=== PATIENT | female | born 1980 | race Caucasian/White ===

== ENCOUNTER 2022-11-10 06:04 | Emergency (ER) | payer OTHER, SELFPAY ==
[2022-11-10 06:05] VITALS: BP 175/82; PULSE 71; RESP 18; TEMP 36.2; O2SAT 99; BMI 47.7
--- NOTE | 2022-11-10 06:46 | US_ITS ---
EXAM: US ABDOMEN LIMITED, RIGHT UPPER QUADRANT CLINICAL INDICATION: pain TECHNIQUE: Real-time ultrasound of the right upper quadrant with image documentation. COMPARISON: No relevant prior studies available. FINDINGS: LIVER: Liver echogenicity appears increased suggesting diffuse parenchymal liver disease, likely steatosis. No intrahepatic biliary ductal dilation. GALLBLADDER: 2 cm stone noted within the neck of the gallbladder. No gallbladder wall thickening is demonstrated. No pericholecystic fluid. Negative sonographic Germain''s sign. COMMON BILE DUCT: Unremarkable as visualized. The proximal common bile duct is within normal limits for the patient''s age. PANCREAS: Unremarkable as visualized. No focal abnormality is demonstrated in the pancreas. No pancreatic ductal dilatation. RIGHT KIDNEY: 2.2 cm right central parapelvic renal cyst. There is no hydronephrosis. No shadowing calculus. US/Gallbladder IMPRESSION: 1. Parenchymal liver disease. 2. Cholelithiasis. Electronically Signed: Dashawn Maria MD at 7:56 EDT ,
[2022-11-10] MEDS: HYDROmorphone 0.5 MG/0.5 ML SYRINGE IV ×2 (06:51→08:18)
[2022-11-10] MEDS: Ondansetron 4 MG/2 ML Vial IV (06:51)
[2022-11-10 06:58] LABS: Mucous, Urine 0 SEEN /hpf (<or=2+); Red Blood Cells-Urine 0 SEEN /hpf (0-5)
[2022-11-10 07:01] LABS: Absolute Lymphocyte Count 2.64 X10^3/uL (0.83-4.51); Absolute Neutrophil Count 7.7 X10^3/uL (2.0-7.7); Basophil# 0.07 X10^3/uL; Basophil% 0.6 % (0-1); Eosinophil# 0.22 X10^3/uL; Eosinophils% 1.9 % (0-5); Hematocrit 40.7 % (37-47); Hemoglobin 13.7 g/dL (12.0-15.0); Lymphocyte # 2.64 X10^3/ul (0.83-4.51); Mean Corp Hgb Conc 33.7 g/dL (32-36); Mean Platelet Vol. 9.7 fl (6.2-12.0); Monocyte# 0.78 X10^3/uL; Monocyte% 6.8 % (0-10); NRBC Flagged by Analyzer 0 % (0-5); Neutrophil # 7.72 X10^3/uL (2.7-7.7); Neutrophil % 67.4 % (47-70); Platelet Count 358 K/mm3 (150-450); RBC Distribution Width CV 13.2 % (11.6-14.6); RBC Distribution Width SD 41.3 fl (35.1-43.9); Red Blood Count 4.73 M/mm3 (4.2-5.4); White Blood Count 11.5 K/mm3 (4.4-11.0)
--- NOTE | 2022-11-10 07:08 | EDS_ITS ---
HPI History of Present Illness Chief Complaint: Abd Pain Narrative Narrative: Patient is a 42-year-old female with no significant past medical history. She reports that over the past few weeks she will get sudden onset pain of her left back/abdomen. She states will last for a few hours and then resolve. She states that there has been no trauma or excessive activity and she cannot associate the pain with eating. She states that initially the pain was short- lived and a few and far between but over the last 1 to 2 days the pain is been more intense with longer duration and more frequent bouts. She states that last night it began around 845 and has not stopped and secondary to this she comes in for evaluation. [facility] Medical History of child Home Medications lactobacillus combination no.8 3 billion cell capsule (Adult Probiotic) 3,000 mmu cells PO QDAY 07/19/17 [History Last Taken Unknown] multivitamin,[id number] (Complete Multivitamin tablet) 1 tab PO QDAY 07/19/17 [History Last Taken Unknown] Allergy/AdvReac Type Severity Reaction Status Date / Time No Known Allergies Allergy Unverified 07/19/17 14:25 Family History (Updated 07/19/17 @ 14:28 by Silvia Lee) Grandmother Breast cancer Cancer Social History (Updated 07/19/17 @ 14:34 by Doron RATLIFF, GAUDENCIO) Smoking Status: Never smoker alcohol intake: never ROS ROS ED Constitutional Constitutional ED: Denies chills or fever(s) ENT ENT ED: Denies sore throat Cardiovascular Cardiovascular: Denies chest pain Respiratory/Chest Respiratory/Chest: Denies cough or dyspnea Gastrointestinal Gastrointestinal: Reports abdominal pain and nausea; Denies diarrhea or vomiting Genitourinary Genitourinary ED: Denies dysuria or hematuria Musculoskeletal Musculoskeletal: Reports back pain Integumentary Denies rash Neurologic Neurologic: Denies headache(s) Hematologic/Lymphatic Hematologic/Lymphatic: Denies easy bleeding or easy bruising EXAM Physical Exam Const Vital Signs: 11/10/22 06:05 Temperature 97.1 F L Temperature Source Temporal Pulse Rate 71 Respiratory Rate 18 Blood Pressure 175/82 H Blood Pressure Mean 113 Pulse Ox 99 Oxygen Delivery Method Room Air Positive well nourished and well developed General Appearance ED: well developed HEENT Reports moist mucous membranes Eyes PERRL and EOMs intact bilaterally General Eye ED: Negative for scleral icterus Neck supple Resp normal respiratory effort and clear to auscultation bilaterally Cardio regular rate and regular rhythm Rate: other Other Details: Radial pulses are plus 2 out of 4 bilaterally are equal and symmetric GI non-distended GI Narrative: Abdomen is obese soft and nondistended with normal active bowel sounds. Patient has pain with palpation in the right upper quadrant with negative Germain sign. No voluntary guarding or rigidity. No pulsatile mass or fluid wave Auscultation: normoactive bowel sounds Palpation: soft Back/Spine Back/Spine Narrative: Faint left-sided CVA pain Extremity normal to inspection Neuro oriented x3 and CN's II-XII intact bilaterally Sensorium / Orientation: alert Psych mental status grossly normal Skin no rashes or lesions noted General Skin Exam: Negative for jaundice MDM MDM MDM Narrative Medical decision making narrative: Patient presented to the ER hypertensive otherwise with stable vitals. She reported intermittent pain along the left side that did not correlate with motion trauma or eating. She stated her pain was on the left but on palpation the only true panic elicit was in the right upper quadrant. Therefore with this recurrent pain I do have concern that this is an atypical presentation for biliary colic. Secondary to his basic labs and an ultrasound ordered. Differential diagnosis also includes intestinal inflammation such as colitis kidney stone or pyelonephritis. Therefore a urine sample was obtained and if it shows infection or blood consideration could be made for a CT scan. At this time the patient's labs and imaging are still pending and therefore she will be signed out to the day physician Dr. Oneil. I do feel that if work-up is negative patient should be safe for discharge but if positive for gallbladder dysfunction case may need to be discussed with general surgery prior to discharge. History & Record Review Discussion w/independent historian: Patient Lab Data Attestation: I reviewed the patient's lab results. Labs: Laboratory Results - last 24 hr 11/10/22 11/10/22 11/10/22 06:25 06:25 06:30 WBC 11.5 H RBC 4.73 Hgb 13.7 Hct 40.7 MCV 86.0 MCH 29.0 MCHC 33.7 RDW Std Deviation 41.3 RDW Coeff of Kelsea 13.2 Plt Count 358 MPV 9.7 Immature Gran % (Auto) 0.300 Neut % (Auto) 67.4 Lymph % (Auto) 23.0 Wake % (Auto) 6.8 Eos % (Auto) 1.9 Baso % (Auto) 0.6 Absolute Neuts (auto) 7.7 Absolute Lymphs (auto) 2.64 Nucleated RBC % 0 Sodium 137 Potassium 5.0 Chloride 108 H Carbon Dioxide 24.0 Anion Gap 5 BUN 15 Creatinine 0.92 Estim Creat Clear Calc 71.68 Est GFR (MDRD) Af Amer 86 Est GFR (MDRD) Non-Af 71 BUN/Creatinine Ratio 16.3 Glucose 122 H Calcium 8.8 Total Bilirubin 0.50 Direct Bilirubin < 0.05 AST 39 H ALT 30 Alkaline Phosphatase 89 Total Protein 7.6 Albumin 3.2 Globulin 4.4 H Lipase 16 Urine Color Yellow Urine Clarity Sl. Cloudy Urine pH 6.0 Ur Specific [place] 1.020 Urine Protein 15 H Urine Glucose (UA) Normal Urine Ketones Negative Urine Occult Blood 10 H Urine Nitrite Negative Urine Bilirubin Negative Urine Urobilinogen Normal Ur Leukocyte Esterase 500 H Urine RBC 0 SEEN Urine WBC 10-25 SEEN Ur Squamous Epith Cells 10-25 SEEN Urine Bacteria 2+ Urine Mucus 0 SEEN Urine Test Negative Discharge Plan Triage Chief Complaint: Abd Pain ED Provider: Reji Hobbs Dx/Rx/DC Orders Prescriptions: No Action lactobacillus combination no.8 [Adult Probiotic] 3 billion cell capsule 3,000 mmu cells PO QDAY multivitamin,jk-tjpw-bnehkvem tablet tablet 1 tab PO QDAY Primary Care Provider: Care Physician,No Primary Referrals: Care Physician,No Primary [Primary Care Provider] -
[2022-11-10 07:13] LABS: Color, Urine Yellow (Yellow); Glucose, Dipstick Normal (Normal); Ketone-Dipstick Negative (Negative); Leukocyte Esterase-Dipstick 500 /ul (Negative); Nitrite-Dipstick Negative (Negative); Occult Blood-Urine 10 /ul (Negative); Protein-Dipstick 15 mg/dl (Negative); Urine Bilirubin Dipstick Negative (Negative); Urine Clarity Sl. Cloudy (Clear); Urine Urobilinogen Normal (Normal)
[2022-11-10 07:17] LABS: Internal QC Validated? YES +Cl - CLEAR BKGD; Pregnancy, Urine Negative Negative
[2022-11-10 07:19] LABS: AST(SGOT) 39 U/L (15-37); Alanine Aminotransfer ALT/SGPT 30 U/L (13-56); Albumin, Serum 3.2 g/dL (3.2-5.0); Alkaline Phosphatase 89 U/L (45-117); Anion Gap 5 (5-15); BUN 15 mg/dL (7-18); BUN/Creat Ratio 16.3 RATIO (10-20); Bilirubin, Direct < 0.05 mg/dL (0.00-0.30); Calcium,Total 8.8 mg/dL (8.5-10.1); Chloride 108 mmol/L (98-107); Creatinine, Serum 0.92 mg/dL (0.55-1.02); EST Glomerular Filtration Rate 71 mL/min (>60); Est Glom Filt Rate - Afr Amer 86 mL/min (>60); Estimated Creatinine Clearance 71.68 ml/min; Globulin 4.4 g/dL (2.2-4.2); Glucose 122 mg/dL (74-106); Lipase 16 U/L (13-75); Protein, Total 7.6 g/dL (6.4-8.2); Sodium Level 137 mmol/L (136-145)
[2022-11-10 07:24] LABS: Bacteria 2+ /hpf (None Seen); Squamous Epithelial Cells - UA 10-25 SEEN /hpf (5-10); White Blood Cells 10-25 SEEN /hpf (0-5)
--- NOTE | 2022-11-10 08:21 | CT_ITS ---
EXAM: CT ABDOMEN AND PELVIS WITHOUT INTRAVENOUS CONTRAST CLINICAL INDICATION: abd pain TECHNIQUE: Helically acquired images were obtained of the abdomen and pelvis without intravenous contrast. This CT exam was performed using one or more of the following dose reduction techniques: automated exposure control, adjustment of the mA and/or kV according to patient size, and/or use of iterative reconstruction technique. COMPARISON: No relevant prior studies available. FINDINGS: LOWER THORAX: Normal. Lung bases are clear. No cardiomegaly. No pericardial effusion. ABDOMEN: LIVER: Normal. Homogeneous. GALLBLADDER AND BILE DUCTS: Partially and peripherally calcified 2.5 cm gallstone. PANCREAS: Normal. No focal cystic mass. SPLEEN: Normal. Normal size without focal cystic or solid mass. ADRENALS: Normal. No nodules. KIDNEYS AND URETERS: Normal. No hydronephrosis. STOMACH AND BOWEL: Normal. No bowel distention. No focal inflammatory change. PELVIS: APPENDIX: No evidence of acute appendicitis. BLADDER: Normal. REPRODUCTIVE: Unremarkable as visualized. No mass. ABDOMEN and PELVIS: INTRAPERITONEAL SPACE: Normal. No ascites or other fluid collection. No free air. BONES/JOINTS: No suspicious lytic or blastic abnormality. SOFT TISSUES: Normal. No discrete abdominal or pelvic wall hernia. VASCULATURE: Normal. Abdominal aorta is non-dilated. LYMPH NODES: Normal. No enlarged lymph nodes. CT/Abdomen/Pelvis without Cont IMPRESSION: Cholelithiasis. Electronically Signed: Dashawn Maria MD at 9:07 EDT Reading Location ID and State: [id number] / [place] Tel , Service support ,
[2022-11-10 09:35] VITALS: BP 138/68; PULSE 80; RESP 16; O2SAT 99
== END 2022-11-10 09:36 | disposition home or self-care (01) ==
PROVIDERS: Emergency Provider Emergency Medicine; Visit Provider Emergency Medicine
DX: K82.8 Other specified diseases of gallbladder (principal)
CPT/HCPCS: 74176; 76705; 80048; 80076; 81001; 81025; 83690; 85025; 96374; 96375; 96376; 99282; A4216; J2405

== ENCOUNTER 2022-11-18 05:49 | Day surgery (SDC) | payer OTHER, SELFPAY ==
[2022-11-18] VITALS (9 sets, daily range): BP systolic 104–132; BP diastolic 61–83; PULSE 61–90; RESP 14–18; TEMP 36.1–37.2; O2SAT 92–98; BMI 45.8
--- NOTE | 2022-11-18 | GALL_PTH ---
PATIENT: SERJIO GHOSH [place] [facility] [place][id number] AGE/SX: 42/F ROOM: RE11/18/[address]: Dr. Esa Nielsen MD : [id number] BED: DIS: 11/18/2022 SPEC #: [id number] RECD: 11/18/22 12:08 STATUS: JOHN RODRIGO #: [id number] JAMILA: 11/18/22 00:[address]: Esa Nielsen DEPT: SURGICAL PATHOLOGY RECD BY: Francis Diaz ENTERED: 11/18/22 12:09 SP TYPE: SARAN CAMPUZANO DR: No Primary Care Phys Tissues: Gallbladder, NOS Procedures: Surgery Specimen Level III Comments: @ Specimen number changed from [id number] to [id number] @ on 11/19/22 at 0751 by PARKEROD. HEADER OPERATION: Laparoscopic cholecystectomy with IOC PRE-OP DIAGNOSIS: Cholelithiasis, biliary colic TISSUE SUBMITTED: Gallbladder MICROSCOPIC DIAGNOSIS Gallbladder, cholecystectomy: Acute and chronic hemorrhagic cholecystitis, cholelithiasis and focal cholesterolosis. BRIEN:tigre 11/19/2022 MICROSCOPIC DESCRIPTION Slides are reviewed. GROSS DESCRIPTION Received is one container labeled with the patient's name and designated gallbladder. The specimen consists of a gallbladder measuring 12.5 cm in length and up to 5.0 cm in diameter. The external surface is pink-randle, smooth and glistening for the most part. Focally it is granular, hemorrhagic and contains cautery artifact. The gallbladder contains hemorrhagic mucoid bile and two mulberry, greenish-yellow stones measuring 1.5 and 2.0 cm in greatest dimension. The smaller stone is impacted close to the cystic duct. The mucosa is congested. The gallbladder wall measures up to 0.6 cm in thickness. Increased amount of subserosal fat is noted. Focal changes suspicious for cholesterolosis are also noted. Field Counsel sections from the gallbladder and the cystic duct are submitted in one cassette. / BRIEN:tigre 11/18/2022 TC:2 CPT: 82296
--- NOTE | 2022-11-18 06:00 | EKG12_ITS ---
Test Reason : PRE-OP Blood Pressure : / mmHG Vent. Rate : 078 BPM Atrial Rate : 078 BPM P-R Int : 160 ms QRS Dur : 088 ms QT Int : 388 ms P-R-T Axes : 035 -11 021 degrees QTc Int : 442 ms Normal sinus rhythm Normal ECG No previous ECGs available Confirmed by JOAN DUMONT, DANIELA ([id number]), technical writer and editor SADIE RODRIGUEZ ([id number]) on 11/20/2022 1:36:57 PM Referred By: Esa Nielsen Confirmed By:DANIELA FRANCO MD
[2022-11-18 06:13] LABS: Internal QC Validated? YES +Cl - CLEAR BKGD; Pregnancy, Urine Negative Negative
[2022-11-18] MEDS: Lactated Ringers 1,000 ML 15 ML IV ×2 (06:30→12:55)
--- NOTE | 2022-11-18 07:23 | PCM.OPRPT ---
Report of Operation Date of Procedure: 11/18/22 Pre-Operative Diagnosis: 1. Biliary colic 2. Cholelithiasis Post-Operative Diagnosis: Chronic cholecystitis Surgery/Procedure Performed:: Laparoscopic cholecystectomy with intraoperative cholangiogram Description of Surgical Findings:: ? Severely inflamed gallbladder with very thickened wall ? Accessory arteries given tributaries to the gallbladder running parallel to the gallbladder fossa on both sides of the gallbladder Surgeon: Esa Nielsen Anesthesiologist: Freeman Valenzuela Specimen's removed: Gallbladder Estimated Blood Loss (mL): 100 Description of Procedure: After proper identification in the preoperative holding area the patient was brought to the operating room where she was positioned supine on the operating room table. Preoperatively SCDs were placed and antibiotics were administered. General anesthesia was then induced. An orogastric tube was placed by anesthesia. Patient's abdomen was prepped and draped in usual sterile fashion. A formal timeout was conducted to confirm both patient and the procedure. Procedure was begun with a supraumbilical incision which was extended deeply down to the level of the fascia. The fascia was elevated and incised, as well as the peritoneum. A finger sweep was performed to ensure there were no underlying adhesions and a 12 mm balloon trocar was inserted. Pneumoperitoneum was established at 15 mmHg. 3 additional trocars were placed in the epigastrium and in the right upper quadrant (3 x 5 mm). Inspection of the peritoneum revealed no inadvertent injury to the viscera below. The gallbladder was visualized with significant distention and chronic inflammation. This distention/inflammation was so extensive it did not permit us to grasp the gallbladder without first aspirating some of the gallbladder contents with our suction purchasing intern aspiration needle. The gallbladder fundus was then grasped and elevated cephalad. Then, using careful dissection the peritoneum was opened and the structures of the hepatocystic triangle were delineated. The gallbladder wall was noted to be very thick and chronically edematous. Additionally, a moderately large gallstone remained impacted in the neck of the gallbladder despite manipulation attempts to displace it so that the gallbladder could be grasped in this location. A small arterial bleeder was identified laterally to the gallbladder adjacent to the neck with mild oozing. I attempted to use cautery to coagulate this vessel, but this only resulted in more extensive hemorrhaging. Therefore a Ray-Seven was placed in the abdomen and pressure was applied for 3 minutes which resulted in hemostasis. Once the critical view of safety was obtained, the cystic duct was singly clipped and partially divided. A cholangiocatheter was introduced to the abdomen via a 14-gauge angiocatheter and fed into the proximal segment of the cystic duct and clipped into place. Under fluoroscopy a cholangiogram was then obtained showing a short cystic duct flowing into a common bile duct with unobstructed antegrade flow of contrast into the duodenum. There was also retrograde flow through the common hepatic duct into the right and left hepatic ducts. Satisfied with this result, the clip on the cholangiocatheter was removed and the cholangiocatheter was withdrawn from the duct. Proximal duct was then triply clipped and completely transected. The same process was used for the cystic artery. The gallbladder was then removed from the gallbladder fossa with the use of electrocautery. Despite use of some limited, intentional blunt dissection of the soft tissue along the gallbladder fossa periphery, 2 small caliber arteries were encountered with bleeding on both the medial and lateral aspects approximately senior living up the gallbladder fossa. These vessels were secured with titanium clips and divided. After the gallbladder was fully removed from the liver, selective electrocautery was used to obtain hemostasis in the gallbladder fossa. Although the gallbladder fossa appeared hemostatic on inspection, given the bleeding experienced throughout the case a's watch of fibrillar hemostatic agent was placed in the proximal portion of the gallbladder fossa adjacent to the divided duct and cystic artery and the liver was allowed to return to its normal resting position. The gallbladder was placed in an Endo Catch bag and removed from the peritoneum. This extirpation required enlargement of the patient's supraumbilical incision at the level of the fascia due to the size of her gallstones. Morison's pouch was irrigated and the effluent was suctioned free of the peritoneum. Hemostasis was again confirmed. The supraumbilical port site was then closed under laparoscopic visualization using a Óscar-Hemant suture passer and #1 PDS with 2 times sbolft-ot-hrlwf sutures to reapproximate the fascia. Pneumoperitoneum was then evacuated. A total of 30 mL of anesthetic was injected at the port sites for postoperative pain control. The skin of each port site was then closed in subcuticular fashion using 4-0 Monocryl. Steri-Strips and bandages were applied as dressings. Patient tolerated the procedure well without any apparent complications. On emergence from their anesthetic the patient was taken to PACU for ongoing recovery. Complications None Admit VTE Documentation VTE Mechan Device Prophylaxis: SCD's Procedures Digestive 40xxx-49xxx: 25001 Laparo cholecystectomy/graph
--- NOTE | 2022-11-18 07:23 | PCM.HP.BLA ---
History and Physical Date of Admission: 11/18/22 Date of Service:? 11/11/22 MR#: [id number] Acct: [id number] Name:SERJIO AGUIRRE Rep #: [id number] : 1980 ? ? Provider: Dr. Esa Nielsen MD Age/Sex:? 42/F ? ? Location: [facility] [place].[facility] Status: Signed Intake Vital Signs ? 11/10/2305:11/11/2309:32 Height 5 ft 5 in ? Weight: 287 lb 0.67 oz 280 lb BMI 47.7 ? BP 175/82 H 124/83 H Blood Pressure Location ? Rt brachial Position ? Sitting Respiration 18 17 Pulse 71 84 Pulse Source ? Monitor Temp 97.1 F L 97.5 F L Temp Source Temporal Temporal Pulse Oximetry (%) 99 96 Oxygen Delivery Method ? room air Intake Visit Reasons:?ED GALLBLADDER Chief Complaint: ED gallbladder Is patient in pain?: Yes Allergies No Known Allergies Allergy (Unverified 11/11/22 10:34) Medications lactobacillus combination no.8 3 billion cell capsule (Adult Probiotic) 3,000 mmu cells PO QDAY 07/19/17 [History Confirmed 11/11/22] multivitamin,mf-uwjf-fzuddthi (Complete Multivitamin tablet) 1 tab PO QDAY 07/19/17 [History Confirmed 11/11/22] hydrocodone-acetaminophen 5-325mg 5mg-325mg 1 tab PO Q6H PRN PRN Pain 3 days #10 TABLETS 11/10/22 [Rx Confirmed 11/11/22] ondansetron 4 mg disintegrating tablet 4 mg PO Q8H PRN PRN Nausea #10 tabs 11/10/22 [Rx Confirmed 11/11/22] sulfamethoxazole 800 mg-trimethoprim 160 mg tablet (Bactrim DS) 1 tab PO BID 3 days #6 tabs 11/11/22 [Rx Confirmed 11/11/22] PFSH Medical History? of child Family History?(Updated 11/11/22 @ 10:29 by Bel Orozco) Grandmother Breast cancer CancerSister Diabetes Social History?(Updated 07/19/17 @ 14:34 by Doron RATLIFF, PA) Smoking Status:? Never smoker alcohol intake:? never HPI HPI HPI: Patient is a 42-year-old female who presents for complaints of biliary colic and cholelithiasis following an ER visit yesterday, 11/10/2022.? Patient states for the last 1 months she is experienced upper left-sided abdominal pain that radiates into her back, however, she has noticed the distribution of this pain changed somewhat to the midportion of her abdomen.? She notes most of the time the pain is limited to just a few hours, however, she experienced pain for greater than 24 hours during her last episode.? She confirms that this pain does have a postprandial onset.? Despite making this observation, she is unclear as to which foods precipitate this pain. She denies any prior experience of this pain outside of this presentation and specifically denies any difficulties through 4 pregnancies. Asked generally about other body systems, patient remarks that she has experienced some recent difficulties with constipation and previously had experienced some diarrhea.? Concerning her urinary habits, she denies any experience of burning or pain with urination, but did remark to some darker urine.? She denies any history of kidney stones or recurrent urinary tract infections. Patient does not have any medical diagnoses and does not take any medications.? She reports that she does bedolla weight issues, but has remained relatively stable in weight for the last several years.? She has no prior surgical history. Previous work-up has included: Gallbladder ultrasound and CT imaging?both which show cholelithiasis without other evidence of cholecystitis or choledocholithiasis.? Notably, 2, patient's CMP was within normal limits aside from very mildly elevated AST (2 points over the upper limits of normal range). ROS General General: Yes fatigue; No weight change, appetite, colon cancer, breast cancer or weakness HEENT HEENT: No difficulty swallowing, eye injury, eye surgery, swollen glands or hoarseness Endo Endocrine: No thyroid disease, diabetes mellitus, thyroid cancer, Hair loss, heat intolerance or cold intolerance Skin Skin: No rash or changing moles Musc Musculoskeletal: No back problems, arthritis, rheumatoid arthritis, gout or joint pain Cardio Cardiovascular: No murmur, pacemaker, heart disease, atrial fibrillation, high blood pressure, heart attack, heart stent, palpitations, shortness of breat with exertion or chest pain Psych Psychiatric: No depression, anxiety or hearing voices Resp Respiratory: No shortness of breath, No sleep apnea, No cough, No COPD, No asthma, No emphysema and No wheezing Gastro Gastrointestinal: Yes abdominal pain, Yes nausea or vomiting, Yes diarrhea, No constipation, No blood in stool, No acid reflux, No hemorrhoids, No ulcers, Yes gallbladder problem and No black,tarry stools Von Hematologic: No blood thinners, No blood disorders, No bleeding, No anemia and No blood clots Neuro Neurologic: No system reviewed and no additional complaints, except as documented, No as per HPI, No abnormal gait, No abnormal hearing, No abnormal movements, No abnormal speech, No behavioral changes, No burning sensations, No confusion, No convulsions, No disequilibrium, No dizziness, No localized weakness, No frequent falls, No headache(s), No lack of coordination, No loss of vision, No memory loss, No numbness, No other visual disturbances, No radicular pain, No restless legs, No sensory deficit, No syncope, No tingling, No tremor(s), No weakness and No other Exam Const General: cooperative and comfortable Nutritional Appearance: obese morbidly obese Orientation: alert, awake and oriented x3 Resp Effort & Inspection: normal respiratory effort GI Other: Nondistended, no scars, soft, minimally tender to palpation in the right upper quadrant with negative Germain sign.? Remainder of abdomen is nontender to palpation.? No hernias. Assessment and Plan Assessment and Plan (1) Biliary colic: ?Status:?Acute ?Comment: This is a 42-year-old female who presents with somewhat atypical presentation of biliary colic.? However, patient does have postprandial pain that seems localized to the right upper quadrant on exam.? Further, she has both now CT and ultrasound imaging which demonstrated cholelithiasis and finding of a moderately large, calcified gallstone in the neck of the gallbladder.? Based on her descriptions of late night, postprandial discomfort, I do suspect that she is dealing with some biliary colic and potentially some chronic cholecystitis.? With this admission, I do question whether the entirety of her symptomology can be attributed to this diagnosis as she is remarked of some left-sided discomfort and her ER work-up was notable for occult blood in her UA as well as leukocyte esterase and some bacteria.? Therefore, with this suspicion and the intent to pursue an operation for her gallbladder, I would like to treat her empirically for urinary tract infection. I held a detailed conversation, including hand drawings, with patient and her regarding the physiology and pathophysiology of her condition.? I shared with them my recommendation to proceed for a laparoscopic cholecystectomy with intraoperative cholangiogram and the reasons for this recommendation.? They accept this recommendation and would like to proceed for an outpatient procedure sometime next week. ?Plan: ? Laparoscopic cholecystectomy with intraoperative cholangiogram tentatively planned for 11/18/2022 (procedure to be scheduled as an outpatient procedure) (2) Cholelithiasis: ?Status:?Acute ?Comment: See above.? Patient with 2 cm gallstone in the neck of the gallbladder and probable biliary colic symptoms.? Cholecystectomy recommended. (3) Urinary tract infection: ?Status:?Acute ?Comment: Patient with left-sided upper abdominal and flank pain, pyuria, occult hematuria, and bacteria in her urine.? Since some of her symptoms potentially are traced back to this dirty urine and we are planning for an outpatient gallbladder procedure, I have recommended treatment of her urine to mitigate her risk for cross-contamination.? Bactrim 160-800 mg twice daily x3 days was ordered to the pharmacy. ?Plan: ? Bactrim x3 days (4) Hepatomegaly: ?Status:?Acute ?Comment: Patient with clear evidence of hepatomegaly with right lobe extending well below her costal margin.? Given her habitus, I am concerned for possible nonalcoholic fatty liver disease.? We will plan to try to confirm this intraoperatively.? I have informed patient of this impression and?along with her cholelithiasis?recommend that she get plugged into a primary care physician for evaluation of her cholesterol/lipids.? She sees merit in this recommendation and asked for a referral to a primary care provider. ?Plan: ? Referral to internal medicine to establish care ? ? ? Orders: Referrals Internal Medicine ? K80.50 - Calculus of bile duct without cholangitis or cholecystitis without obstruction, N39.0 - Urinary tract infection, site not specified, R16.0 - Hepatomegaly, not elsewhere classified I have examined the patient the following changes are noted: Patient reports that she is having additional attacks of abdominal pain earlier this week. She also confirms that she completed her prescribed antibiotics for empiric treatment of probable UTI. She has no further questions related procedure. We will plan to proceed to the operating room for laparoscopic cholecystectomy with cholangiogram as discussed above.
--- NOTE | 2022-11-18 07:30 | RAD_ITS ---
HISTORY: LAP TAYLOR WITH IOC COMPARISON: CT abdomen and pelvis November 10, 2022 TECHNIQUE: Fluoroscopic support for intraoperative cholangiogram. No radiologist present. 2 fluoroscopic runs submitted FINDINGS: Images demonstrate filling of the remaining cystic duct, common bile duct, with reflux of contrast into hepatic ducts, without focal filling defect to suggest retained stone.. Total fluoroscopy time: 30.9 seconds Cumulative dose: 27.79 mGy RAD/Cholangiogram/ O R,Initial IMPRESSION: Fluoroscopic assistance for intraoperative cholangiogram. Please see operative report for additional information. Electronically Signed: Lazarus Morales MD at 5:36 EDT ,
[2022-11-18] MEDS: Bupivacaine Mpf 0.5% 30 ML VIAL (10:00)
--- NOTE | 2022-11-18 10:05 | DCINST_ITS ---
Discharge Instructions Diet Discharge Diet: No restrictions Activity Discharge Activity: May Not Drive (No driving while using narcotic pain medication) and May Shower (Postoperative day 1) May shower in (days): 1 Ice area for (Minutes): 20 Lifting Restrictions: No lifting greater than 15 pounds for 2 weeks after surgery Dressing / Incision Call your doctor if your incision/area has: Continuous Slow Oozing, Increased Pain/ Swelling, Increased Redness, Foul Smelling Discharge and Swelling at the incision site Call your doctor if you observe: Fever of 101 or Higher Remove Dressing in: 2 days (Please leave Steri-Strips intact until they fall off spontaneously or are taken off at your follow-up visit) Cleanse incision/area with: Soap & Water Follow Up Care Please Follow Up With: Esa Nielsen MD When: 7-10days postop Test Results: Test results from this visit will be discussed in further detail at your follow- up appointment, if applicable. Discharge Plan Admission Primary Reason for Your Visit: Gallbladder removal Attending Provider: Esa Nielsen Primary Care Provider: Care PhysicianAngélica Primary Instructions Patient Instructions: After Gallbladder Surgery Discharge Orders/Prescriptions Prescriptions: New oxycodone 5 mg tablet 5 mg PO Q6H PRN (Reason: pain) 5 Days Qty: 14 0RF Continued lactobacillus combination no.8 [Adult Probiotic] 3 billion cell capsule 3,000 mmu cells PO QDAY multivitamin,uo-iwro-sohthyke tablet tablet 1 tab PO QDAY hydrocodone-acetaminophen 5-325 mg tablet 1 tab PO Q6H PRN PRN (Reason: Pain) 3 Days Qty: 10 0RF ondansetron 4 mg tablet,disintegrating 4 mg PO Q8H PRN PRN (Reason: Nausea) Qty: 10 0RF famotidine [Pepcid AC] 20 mg Tablet 20 mg PO PRN PRN (Reason: Indigestion) naproxen sodium [Aleve] 220 mg Capsule 220 mg PO Q12H PRN (Reason: Pain) Referrals / Follow Up: Care PhysicianAngélica Primary [Primary Care Provider] - Disposition Disposition (needs filled in before D/C Order can be placed): Home, Self Care
== END 2022-11-18 14:56 | disposition home or self-care (01) ==
LOC: SDC 05:49 → AC 05:49
PROVIDERS: Anesthesiology; Referring Provider Surgery; Visit Provider Surgery
PROC: (CPT 47610; principal; 2022-11-18 07:10)
DX: K80.12 Calculus of gallbladder with acute and chronic cholecystitis without obstruction (principal); R16.0 Hepatomegaly, not elsewhere classified; J45.909 Unspecified asthma, uncomplicated; Z79.899 Other long term (current) drug therapy
CPT/HCPCS: 47563; 74300; 76000; 81025; 88304; 93005; J7120; J2405

== ENCOUNTER → 2024-01-06 | Outpatient (CLI) | payer OTHER, SELFPAY ==
[2024-01-06 12:21] LABS: Absolute Lymphocyte Count 2.25 X10^3/uL (0.83-4.51); Absolute Neutrophil Count 7.1 X10^3/uL (2.0-7.7); Basophil# 0.05 X10^3/uL; Basophil% 0.5 % (0-1); Eosinophil# 0.27 X10^3/uL; Eosinophils% 2.6 % (0-5); Hematocrit 43.9 % (37-47); Hemoglobin 14.3 g/dL (12.0-15.0); Lymphocyte # 2.25 X10^3/ul (0.83-4.51); Lymphocyte % 21.8 % (19-41); Mean Corp Hgb Conc 32.6 g/dL (32-36); Mean Corpuscular Hgb 28.2 pg (27.0-32.0); Mean Corpuscular Volume 86.6 fL (81-99); Mean Platelet Vol. 9.9 fl (6.2-12.0); Monocyte# 0.59 X10^3/uL; Monocyte% 5.7 % (0-10); NRBC Flagged by Analyzer 0 % (0-5); Neutrophil # 7.13 X10^3/uL (2.7-7.7); Neutrophil % 69.1 % (47-70); Platelet Count 371 K/mm3 (150-450); RBC Distribution Width CV 13.5 % (11.6-14.6); Red Blood Count 5.07 M/mm3 (4.2-5.4); White Blood Count 10.3 K/mm3 (4.4-11.0)
[2024-01-06 13:01] LABS: ALB/GLOB Ratio 0.7 RATIO (0.9-2.4); AST(SGOT) 17 U/L (15-37); Alanine Aminotransfer ALT/SGPT 23 U/L (13-56); Albumin, Serum 3.1 g/dL (3.2-5.0); Alkaline Phosphatase 106 U/L (45-117); Anion Gap 8 (5-15); BUN 17 mg/dL (7-18); BUN/Creat Ratio 18.5 RATIO (10-20); Chloride 106 mmol/L (98-107); Cholesterol 140 mg/dL (200); Creatinine, Serum 0.92 mg/dL (0.55-1.02); EST Glomerular Filtration Rate 71 mL/min (>60); Est Glom Filt Rate - Afr Amer 86 mL/min (>60); Globulin 4.3 g/dL (2.2-4.2); Glucose 122 mg/dL (74-106); High Density Lipoprotein 33 mg/dL; Potassium 4.5 mmol/L (3.5-5.1); Protein, Total 7.4 g/dL (6.4-8.2); Sodium Level 137 mmol/L (136-145); Triglycerides 118 mg/dL; Very Low Density Lipoprotein 24 mg/dL (5-40)
[2024-01-06 14:01] LABS: Hemoglobin A1c 5.8 % (3.8-5.6)
== END | disposition home or self-care (01) ==
LOC: BIMLAB 08:09
PROVIDERS: PCP Internal Medicine; Referring Provider Internal Medicine; Visit Provider Internal Medicine
DX: Z13.6 Encounter for screening for cardiovascular disorders (principal); R73.03 Prediabetes; K21.9 Gastro-esophageal reflux disease without esophagitis
CPT/HCPCS: 36415; 80053; 80061; 83036; 85025

== ENCOUNTER → 2024-01-19 | Outpatient (CLI) | payer OTHER, SELFPAY ==
--- NOTE | 2024-01-19 14:59 | CT_ITS ---
STUDY: CT ABDOMEN AND PELVIS WITH CONTRAST REASON FOR EXAM: Female, 43 years old. incisional hernia RADIATION DOSAGE (If Supplied By Facility): CTDIvol = ( 16.84 ) mGy, DLP = ( 1192.67 ) mGycm TECHNIQUE: Oral and amp; IV Readi-CAT and amp; 100mL Isovue-300 was administered. Transaxial images were obtained from the dome of the diaphragm to the symphysis pubis in the portal venous phase. Multiplanar coronal and sagittal images were reformatted. Individualized Dose Optimization Techniques Were Used For This CT. COMPARISON: Prior study dated: 11/10/2022 FINDINGS: LOWER CHEST: Lung bases are clear. No cardiomegaly or pericardial effusion. LIVER: The liver is normal in size, shape, and attenuation. No focal mass. GALLBLADDER AND BILIARY TREE: Cholecystectomy. No intra- or extrahepatic biliary ductal dilation. PANCREAS: No focal cystic or solid mass. SPLEEN: Normal size without focal cystic or solid mass. ADRENAL GLANDS: No nodules. KIDNEYS AND URETERS: Normal renal size and position. No hydronephrosis or nephrolithiasis. PERITONEUM: No ascites or free air. No other fluid collection. BOWEL: The stomach is unremarkable. Normal caliber small bowel. There is no obstruction. No colonic wall thickening or inflammation. Appendix not seen. LYMPH NODES: No enlarged mesenteric or retroperitoneal lymph nodes. VESSELS: Aorta is non-dilated. URINARY BLADDER: Unremarkable. REPRODUCTIVE ORGANS: No pelvic masses. ABDOMINAL WALL: Fat-containing right periumbilical hernia is new from previous. Hernia neck measures 3.6 cm transverse by 3 cm CC. Hernia sac measures 5.6 x 4.7 x 5 cm. BONES: No lytic or blastic abnormality. CT/Abdomen/Pelvis WITH Contrast IMPRESSION: Fat-containing periumbilical abdominal wall hernia. No inflammatory changes. This is new from the prior CT. Electronically Signed: Darci Keenan MD at 16:14 EDT ,
== END | disposition home or self-care (01) ==
LOC: CT 14:58
PROVIDERS: PCP Internal Medicine; Referring Provider Internal Medicine; Visit Provider Internal Medicine
DX: K43.2 Incisional hernia without obstruction or gangrene (principal)
CPT/HCPCS: 74177; Q9967

== ENCOUNTER → 2024-11-21 | Outpatient (CLI) | payer OTHER, SELFPAY | END | disposition home or self-care (01) | LOC: LABSPEC 16:48 | PROVIDERS: PCP Internal Medicine; Referring Provider Surgery; Visit Provider Surgery | DX: K43.2 Incisional hernia without obstruction or gangrene (principal) | CPT/HCPCS: 87081 ==

== ENCOUNTER → 2025-05-02 | Outpatient (CLI) | payer OTHER, SELFPAY | END | disposition home or self-care (01) | LOC: LABSPEC 10:56 | PROVIDERS: PCP Internal Medicine; Referring Provider Physician Assistant; Visit Provider Physician Assistant | DX: Z01.818 Encounter for other preprocedural examination (principal) | CPT/HCPCS: 87081 ==

== ENCOUNTER 2025-06-01 09:27 | Day surgery (SDC) | payer OTHER, SELFPAY ==
[2025-06-01] VITALS (9 sets, daily range): BP systolic 129–143; BP diastolic 83–91; PULSE 65–84; RESP 12–20; TEMP 36.1–36.8; O2SAT 92–99; BMI 45.1
--- NOTE | 2025-06-01 09:32 | PRE.ANES_ITS ---
ASA Classification* ASA Classification ASA Classification: 3 Assessment & Plan Anesthesia* Anesthesia Assessment Anesthesia Assessment: Discussed sedation and/or anesthesia options, risks, benefits, and alternatives with patient/parents/legal guardian/POA. Questions invited. The patient/parents/legal guardian/POA seems to understand and agrees to proceed with anesthesia plan. Reviewed the physical assessment, medical history, allergy history and patient home medications list prior to surgery/procedure/anesthetic and documented any changes. Performed airway and anesthesia risk assessments. Anesthesia Type Anesthesia Type: General Anesthesia Focused Assessment* Airway Assessment Mouth opens: >3 cm Mallampati Score: II Labs Anesthesia Preop lab: CBC WBC, (4.4-11.0) 10.3 K/mm3 01/06/24, 08:09 RBC, (4.2-5.4) 5.07 M/mm3 01/06/24, 08:09 Hgb, (12.0-15.0) 14.3 g/dL 01/06/24, 08:09 Hct, (37-47) 43.9 % 01/06/24, 08:09 Plt Count, (150-450) 371 K/mm3 01/06/24, 08:09 CHEMISTRY Potassium, (3.5-5.1) 4.5 mmol/L 01/06/24, 08:09 Sodium, (136-145) 137 mmol/L 01/06/24, 08:09 BUN, (7-18) 17 mg/dL 01/06/24, 08:09 Creatinine, (0.55-1.02) 0.92 mg/dL 01/06/24, 08:09 Glucose, (74-106) 122 mg/dL H 01/06/24, 08:09 TSH, (0.358-3.74) 1.90 uIU/mL 05/19/17, 10:50 COAG Urine Test Negative Negative 11/18/22, 06:05 Pre-Assessment Diagnosis/Proposed Procedure Planned Operative Procedure(s): Lap Robotic Ventral Hernia w/mesh Anesthesia History 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 When Was Last Pacemaker Check QUESTION #4 FULL TEXT: You/Your Family Experience fever (hyperthermia) with Anesthesia Last Oral Intake Last Oral intake: Last Oral Intake NPO since Meds taken in AM with sips of water? Meds patient instructed to take am of surgery PONV PONV - artificial flowers dyer: PONV - artificial flowers dyer Female Yes 05/30/25 09:50 HX of Motion Sickness Yes 05/30/25 09:50 HX of N/V After Surgery No 05/30/25 09:50 Non-Smoker Yes 05/30/25 09:50 Duration of Surgery greater No 05/30/25 09:50 than 60 minutes Number of Risk Factors 3 05/30/25 09:50 PONV Score Moderate Risk 05/30/25 09:50 Height & Weight Height & Weight: Anesthesia: Height & Weight Height 5 ft 5 in 05/31/25 09:43 Weight: 121.109 kg 05/31/25 09:43 Respiratory Assessment Respiratory Assessment - artificial flowers dyer: Respiratory Tract Infection Hx - artificial flowers dyer Hx Respiratory Tract Infection No 05/30/25 09:50 STOP Sleep Apnea STOP Sleep Apnea - artificial flowers dyer: STOP Sleep Apnea - artificial flowers dyer Hx Hypertension No 05/30/25 09:50 Hx Sleep Apnea No 05/30/25 09:50 CPAP BIPAP Do you snore loudly (louder No 05/30/25 09:50 than talking or can be heard Do you often feel tired/ No 05/30/25 09:50 fatigued/ sleepy during daytime? Has anyone observed you stop No 05/30/25 09:50 breathing during sleep? STOP Results Negative 05/30/25 09:50 QUESTION #5 FULL TEXT : Do you snore loudly (louder than talking or can be heard through closed doors)? Tobacco Use History Tobacco Use History - artificial flowers dyer: Tobacco Use History - artificial flowers dyer Tobacco Use Smoking Status Never smoker 05/30/25 09:50 Hx Tobacco Use No 05/30/25 09:50 Years Smoking Packs Smoked per Day Smoking Cessation Date was within the last 15 years Hx Smoking Cessation Date Hx Smoking Cessation Counseling Hematologic Medial History Hematologic Hx - artificial flowers dyer: Hematologic Medical Hx - toll mechanic Hx of Blood Transfusion No 05/30/25 09:50 Hx of Transfusion in last 3 No 05/30/25 09:50 Months Date of Last Transfusion (if within last 3 months) Ever experience any problems No 05/30/25 09:50 with transfusion(s)? Specify any problems Hx of Preganancy in last 3 No 05/30/25 09:50 Months Nurse Filling Out Transfusion VCHRISTIN 05/30/25 09:50 & Questions: Date: 05/30/25 05/30/25 09:50 Time: 09:51 05/30/25 09:50 Patient unable to answer at this time (ie. confused, unrespo /Reproduction History /Reproductive History - artificial flowers dyer: /Reproductive Hx- artificial flowers dyer Hx Now No 05/30/25 09:50 Gestational Age (in weeks): EDC: Hx Hx Para Hx Section SAB No 05/30/25 09:50 Does the father of the baby or his family experience fever w Father of the baby Malignant Hypertension history comment Active Medications Active Medications: Current Medications Generic Name Dose Route Start Last Admin Trade Name Freq PRN Reason Stop Dose Admin Cefazolin Sodium 3 gm/ Sodium 115 mls @ 200 mls/hr 06/01/25 11:00 Chloride IV 06/01/25 11:34 INTRAOP ONE PFSH Medical History Hair loss Pre-op testing Anxiety Fatty liver Back pain Migraine headache Heartburn Asthma Shortness of breath on exertion Non-smoker Leg cramps Biliary colic of child Home Medications ?Medication ?Instructions ?Recorded ?Last Taken ?Type famotidine 20 mg tablet (Pepcid AC) 20 mg PO PRN PRN I ndigestion 11/13/22 Unknown History ibuprofen 200 mg tablet (Advil) 200 mg PO Q8H PRN pain 05/30/25 Unknown History Allergy/AdvReac Type Severity Reaction Status Date / Time No Known Allergies Allergy Verified 05/30/25 09:46 Family History Grandmother Breast cancer Cancer Sister Diabetes Surgical History History of laparoscopic cholecystectomy S/P cholecystectomy History of esophagogastroduodenoscopy (EGD) Social History household members: spouse and children number of children: 4 current occupational status: employed current occupation: [email or web address] Smoking Status: Never smoker Electronic Cigarette Use: not used alcohol intake: current alcohol intake frequency: holidays/special occasions only Alcohol type: wine substance use type: does not use what type of physical activity do you participate in: walking frequency: 3-4 times per week seatbelt use: always do you feel safe at home: Yes Review of Systems (Anesthesia) ROS Narrative System reviewed and no additional complaints, except as documented.
[2025-06-01 09:59] LABS: Internal QC Validated? YES +Cl - CLEAR BKGD; Pregnancy, Urine Negative Negative
[2025-06-01] MEDS: Lactated Ringers 1,000 ML 15 ML IV (10:17)
--- NOTE | 2025-06-01 11:08 | HP.PCM_ITS ---
History and Physical Date of Admission: 06/01/25 Date of Service: 05/02/25 MR#: [id number] Acct: [id number] Name: SERJIO GHOSH Rep #: [id number] : 1980 Provider: JONO Rodriguez Age/Sex: 44/F Location: [facility] Status: Signed Intake Vital Signs 02/02/2514:11 05/02/2510:36 Height 5 ft 5 in 5 ft 5 in Weight: 267 lb 272 lb BMI 44.4 45.2 BP 126/64 H 115/78 Blood Pressure Location Lt brachial Rt brachial Position Sitting Sitting Respiration 16 16 Pulse 74 Pulse Source Monitor Temp 97.3 F L Temp Source Temporal Pulse Oximetry (%) 97 Oxygen Delivery Method room air Intake Visit Reasons: update H&P for hernia repair with MB Chief Complaint: update H&P Call Center Analyst Required: No Is patient in pain?: No Allergies No Known Allergies Allergy (Unverified 05/02/25 10:37) Medications ?Medication ?Instructions ?Recorded ?Confirmed ?Type famotidine 20 mg tablet (Pepcid AC) 20 mg PO PRN PRN Indigestion 11/13/22 05/02/25 History collagen PO 11/21/24 05/02/25 History multivitamin (Daily Multi-Vitamin 1 tab PO QAM 11/21/24 05/02/25 History tablet) minoxidil 2.5 mg tablet 1.25 mg PO QDAY 02/02/25 05/02/25 Histor y spironolactone 100 mg tablet 100 mg PO QDAY 02/02/25 05/02/25 History Have you fallen in the past year?: No PFSH Medical History Hair loss Pre-op testing Anxiety Fatty liver Back pain Migraine headache Heartburn Asthma Shortness of breath on exertion Non-smoker Leg cramps Biliary colic of child Surgical History S/P cholecystectomy History of esophagogastroduodenoscopy (EGD) Family History Grandmother Breast cancer Cancer Sister Diabetes Social History household members: spouse and children number of children: 4 current occupational status: employed 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 Nielsen. At patient's last visit, she was noted to have lost 30 pounds with the help of injectable weight loss medication. She notes going off of the medication as she did not like the side effects. She notes gaining approximately 20 pounds back. She has been back dieting. She notes last having pain at the hernia site with her jeans. She states that is when she decided to call our office to schedule an appointment for surgery. She denies any bowel habit changes. She denies any cardiac or pulmonary history. She notes nausea with anesthesia when she had her gallbladder removed. Patient's previous history per Dr. Nielsen: Patient is a 44-year-old female who presents for evaluation of a ventral hernia. She was last seen 02/09/2024. She states that she has been working at weight loss but is not quite as low as what we had discussed. She reports excess has been found first through use of tirzepatide and now while dieting and exercising on her own (she also notes a limited period of exercising with a personal property assessor that is now complete) she states that overall her hernia can be described as status quo but last week when she was driving she felt some pain in the area. She otherwise denies noting any growth and states she has been consciously trying not to lift anything heavy. She also denies any other health changes, generally. Below is recapitulated from patient's prior visit for ease of review: Patient is a 43-year-old female who presents for evaluation of a ventral hernia. This finding was first noticed by 4 to 5 months after completion of our last procedure together (a cholecystectomy in October 2022). He shares that it started b y noticing a bulge but has progressed to include a pain experience which she confesses is not constant. She notes that there is discomfort when she is lifting or occasionally simply when standing. She denies any concern for growth. She does report that she has limited her physical activity because of this issue. Patient reports on her history of prediabetes that she has been told this is stable. She shares that she has been trying to lose weight since August and has achieved approximately 8 to 10 pound weight loss through walking and watching what she eats. Patient has no personal history of smoking. Patient has no personal history of recurrent cutaneous infections including staph. Pertinent surgical history includes: Laparoscopic cholecystectomy Update 11/21/2024: Patient is now a 44-year-old female who follows up with me approximately 9 months after our initial consultation related to her ventral hernia. She has overall use this time productively and realized an approximately 30 pound weight loss. This has translated to a decrease of her BMI by 5 points. While this still remains above an ideal BMI threshold of 40 patient pledges to continue her work towards weight loss and obtain a healthier baseline. With this significant improvement I find it reasonable to pursue surgery for her ventral hernia and discussed a robot-assisted approach with mesh placement. I shared postoperative expectations of continuing frequent mobilization but lifting restriction of no more weight than 10 pounds for 5 weeks. She confirms understanding. We will plan to schedule around conflict she has with family commitments but targeting end of November early December. We will also obtain a MRSA screening to determine if she requires eradication protocol before proceeding with surgery. ROS General General: No weight change, appetite, fatigue, colon cancer, breast cancer or weakness HEENT HEENT: No difficulty swallowing, eye injury, eye surgery, swollen glands or hoarseness Endo Endocrine: No thyroid disease, diabetes mellitus, thyroid cancer, Hair loss, heat intolerance or cold intolerance Skin Skin: Yes rash; No changing moles Musc Musculoskeletal: No back problems, arthritis, rheumatoid arthritis, gout or joint pain Cardio Cardiovascular: No murmur, pacemaker, heart disease, atrial fibrillation, high blood pressure, heart attack, heart stent, palpitations, shortness of breath with exertion or chest pain Psych Psychiatric: No depression, anxiety or hearing voices Resp Respiratory: No shortness of breath, No sleep apnea, No cough, No COPD, No ast hma, No emphysema and No wheezing Gastro Gastrointestinal: Yes abdominal pain, No nausea or vomiting, Yes diarrhea, No constipation, No blood in stool, No acid reflux, No hemorrhoids, No ulcers, No gallbladder problem and No black,tarry stools Von Hematologic: No blood thinners, No blood disorders, No bleeding, No anemia and No blood clots Neuro Neurologic: No numbness, No tingling and No weakness Exam Const General: cooperative, healthy appearing, comfortable and no acute distress HENMI Head: normal to inspection Eyes General: appearance normal, both eyes and all related structures Neck Neck: normal visual inspection Neck mass: No Resp Effort & Inspection: normal respiratory effort Auscultation: clear to auscultation bilaterally Cardio Rate: regular rate Rhythm: regular rhythm GI Inspection: normal to inspection Palpation: soft and hernia ventral (partially reducible hernia with notable tenderness) Musc Cervical Spine: normal cervical lordosis Skin General: no rashes or lesions noted Neuro General: no focal motor deficits and CN's II-XI intact bilaterally Extrem General: normal to inspection Psych Appearance: grossly normal Affect: normal affect Assessment and Plan Assessment and Plan (1) Incisional hernia without obstruction or gangrene: Status: Acute Plan: Dr. Nielsen will plan to perform a robotic- assisted laparoscopic ventral hernia repair with mesh. Procedure details, risk and benefits have been reviewed. Discussed no lifting greater than 10 pounds for 5 weeks. MRSA screening swab was obtained at today's visit. Patient is scheduled for 06/[address] Nielsen. Patient has had the opportunity to ask and have questions answered. Patient verbally understands and agrees with the plan. Patient voices she has no desire to return to the injectable weight loss medication. I did advise her if she does, she will need to hold the medication 7 days prior to the procedure. She is not on any blood thinners. She did schedule a post-opertaively appointment for 1 week after the procedure with Dr. Nielsen. I have examined the patient and the H&P has been reviewed. There are no clinical changes since date of exam. Patient states that she is in a stable state of health. She has not had any significant changes or pain noted with her hernia. She has had no change of her bowel function. She does admit that she has gained some weight since discontinuing her GLP-1 agonist. Procedure details as well as postprocedure activity restrictions were reviewed. Consents were confirmed. Proceed to the operating room for robot-assisted ventral hernia repair with mesh.
[2025-06-01] MEDS: Midazolam 2 MG/2 ML Syringe IV (11:12)
[2025-06-01] MEDS: Cefazolin 1 GM/5 ML Vial 3 GM IV (11:13)
[2025-06-01] MEDS: Lidocaine 1% (5 ml sdv) 5 ML Vial IV (11:18)
[2025-06-01] MEDS: fentaNYL 100 MCG/2 ML Ampul 200 MCG IV (11:42)
[2025-06-01] MEDS: Lactated Ringers 2,000 ML 2000 ML IV (12:31)
[2025-06-01] MEDS: 0.9% Normal Saline (Pres. free 10 ML Vial (15:02)
[2025-06-01] MEDS: BUPIVACAINE LIPOSOME/PF 20 ML VIAL OPERA.SITE (15:02)
--- NOTE | 2025-06-01 15:07 | PCM.OPRPT ---
Operative Report (Standard) Operative Information Date of Procedure: 06/01/25 Pre-Operative Diagnosis: Ventral hernia Post-Operative Diagnosis: Ventral hernia Surgery/Procedure Performed: Robot-assisted repair of ventral hernia with mesh defensive secondary coach: Yes Traveling Accountant: Felipe Thompson Tasks completed by case management assistant: Opening & closing and Other (Insertion of material) Type of Anesthesia: General/Supplemental RN Documented Start/Stop Times: Operation Date: 06/01/25 11:00 Case Time Into Pre-Op 06/01/25 09:57 Out of Pre-Op 06/01/25 11:09 Anesthesia Start 06/01/25 11:13 Into Room 06/01/25 11:13 Procedure Start 06/01/25 11:43 Procedure End 06/01/25 15:14 Anesthesia End 06/01/25 15:19 Out of Room 06/01/25 15:19 Into Recovery 06/01/25 15:24 Out of Recovery 06/01/25 16:16 Into Phase II Recovery 06/01/25 16:18 Out of Phase II 06/01/25 17:32 Procedure Start Time: 11:43 Procedure Stop Time: 15:14 Select all DRAINS/GRAFTS/IMPLANTS that apply: Implanted device (Bard soft mesh 12 x 15 cm) Implanted device details: Reference [id number], Lot [id number] Estimated Blood Loss: 20 Specimen collected: No Description of surgery: After appropriate identification in the preoperative holding area, the patient was brought to the operating room suite where she was positioned supine the operating table. Preoperative antibiotics were administered. Patient was then induced with a general anesthetic. Patient's abdomen was prepped and draped in the usual sterile fashion. A formal timeout followed to confirm patient and procedure. Procedure was begun with a Veress entry at Ivy's point. Once the set point pressure was reached, this Veress needle was exchanged for an optical trocar and an optical entry was made in this location. Laparoscopic investigation revealed no inadvertent injury to the viscera below. A transversus abdominis plane block was created with 80 mL of a mixed solution (total 60 mL bupivacaine, 20 mL Exparel, and 20 mL saline) under laparoscopic vision. Two additional 8 mm robotic trocars were placed along the abdominal wall laterally taking care to avoid the bony prominences of the costal margin and the ASIS. The robot was then brought in and docked in standard fashion. Robotically a peritoneal flap was raised approximately 3cm medial from my trocars and carried this away towards the contralateral abdominal wall. Great care was taken to lower the peritoneum off of the posterior rectus sheath and avoid any rents in the peritoneal flap. Perforating vessels were sealed with bipolar energy to maintain hemostasis as this flap dissection proceeded. I then addressed the hernia directly by opening the scar tissue about the hernia sac and carefully applying manual traction downward until the hernia was fully reduced. This process proved somewhat more involved than usual due to the large size of the defect but was eventually accomplished with minimal peritoneal rents. The flap was then further dissected laterally until it appeared we had adequate width. Then a ruler was used to formally confirm the area of dissection as well as measure the hernia defect which measured 5 cm in diameter. The hernia defect was closed with a 12 inch #1 stratafix suture by running the fascial defect closed and then running the suture back upon itself. Bites of the hernia sac were incorporated in the fascial closure to minimize the space. Next a 12 x 15 cm Bard soft macro porous Prolene mesh was introduced into the peritoneum. A 3-0 Vicryl suture was then used to loosely tacked the mesh in 4 quadrants as well as directly against the fascial closure medially. The peritoneum was closed with 3-0 V-Loc suture incorporating bites of the mesh in order to keep it flat. Due to the presence several rents on the contralateral side of the peritoneal flap a second 3 oh V-Loc suture was used to close these by incorporating the redundancy of the peritoneal flap as I did so. The V-Loc was cut short and the remnant was used to close a small defect over the hernia sac directly. Satisfied with this closure a small corner of the mesh was trimmed in the left upper quadrant to minimize any mesh exposure beyond the peritoneal lining. Then all inserted needles, a ruler, and a Ray-Seven gauze were all removed under laparoscopic visualization and case counts were confirmed. The robot was then undocked and the trocars were removed. Additional local anesthetic was instilled and the port sites were closed with interrupted 4-0 Monocryl in subcuticular fashion. Steri-Strips and OpSite dressings were applied. Patient was transferred to PACU for ongoing care. Surgical Findings: ? 5 cm mesh with chronically incarcerated fat Complications Complications: No Admit VTE Documentation VTE Mechan Device Prophylaxis: SCD's
--- NOTE | 2025-06-01 15:21 | EX.PCM.DISCH ---
Discharge Instructions Diet Discharge Diet: No restrictions Activity Discharge Activity: May Not Drive (While taking narcotic pain medication) and May Shower May shower in (days): 2 Ice area for (Minutes): 20 Lifting Restrictions: No lifting greater than 10 pounds for the next 5 weeks Dressing / Incision Call your doctor if your incision/area has: Continuous Slow Oozing, Increased Pain/ Swelling, Increased Redness, Foul Smelling Discharge and Swelling at the incision site Call your doctor if you observe: Fever of 101 or Higher, Inability to urinate and Inability to have a bowel movement Change Dressing in: 2 days (Please leave Steri-Strips intact until they fall off spontaneously or are taken off at your follow-up visit) Remove Dressing in: 2 days Cleanse incision/area with: Soap & Water and Keep Dressing Clean & Dry Follow Up Care Please Follow Up With: Esa Nielsen MD When: 1 week postop Test Results: Test results from this visit will be discussed in further detail at your follow-up appointment, if applicable. Discharge Plan Admission Primary Reason for Your Visit: Ventral hernia repair Attending Provider: Esa Nielsen Primary Care Provider: Radha Loo Consulting Providers: Freeman Valenzuela Instructions Print Language: Panamanian Discharge Orders/Prescriptions Prescriptions: New oxycodone 5 mg tablet 5 mg PO Q6H PRN (Reason: pain) 3 Days Qty: 10 0RF Continued famotidine [Pepcid AC] 20 mg Tablet 20 mg PO PRN PRN (Reason: Indigestion) ibuprofen [Advil] 200 mg tablet 200 mg PO Q8H PRN (Reason: pain) Referrals / Follow Up: Radha Loo MD [Primary Care Provider, Internal Medicine] Disposition Disposition (needs filled in before D/C Order can be placed): Home, Self Care
--- NOTE | 2025-06-01 15:49 | PCM.POST.ANE ---
Anesthesia: Postop Eval I Current Vital Signs Temperature: 97 F Pulse Rate: 65 Blood Pressure: 137/83 Respiratory Rate: 12 Pulse Ox: 99 Oxygen Delivery Method: Nasal Cannula Oxygen Flow Rate (L/min): 4 Assessment Airway patent: Yes Spontaneous unlabored respirations: Yes nausea: No Vomiting: No Anesthesia Complication: No Fluid Hydration Crystalloid volume administer (ml): 1,000 Total IV fluid infused: 1,000 Progress Note Anesthesia document: Postop Eval 1 completed: Yes
--- NOTE | 2025-06-01 15:57 | PCM.POSTANE2 ---
Anesthesia Postop Eval I Sum Postop Eval Completion status Anesthesia document: Postop Eval 1 completed: Yes Anesthesia Postop Eval I Summary Anesthesia Postop Eval I Summary: Anesthesia Postop Eval I: Assessment Summary Airway patent Yes 06/01/25 15:50 Spontaneous unlabored Yes 06/01/25 15:50 respirations Mental status nausea No 06/01/25 15:50 Vomiting No 06/01/25 15:50 Anesthesia Postop Eval I: Fluid Summary Crystalloid volume administer 1,000 06/01/25 15:50 (ml) Colloids volume administered ( ml) Blood Product volume administered (ml) Total IV fluid infused 1,000 06/01/25 15:50 Anesthesia Postop Eval I: Summary Notes Anesthesia Complication No 06/01/25 15:50 Anesthesia Complication Comment: Post-operative progress note Anesthesia: Postop Eval II Evaluation Mental status: Awake Pain Level: 2 nausea: No Vomiting: No
== END 2025-06-01 17:32 | disposition home or self-care (01) ==
LOC: SDC 09:27 → AC 09:29
PROVIDERS: Anesthesiology; PCP Internal Medicine; Referring Provider Surgery; Visit Provider Surgery
PROC: 0WQF4ZZ Repair Abdominal Wall, Percutaneous Endoscopic Approach (ICD-10-PCS; CPT 49593; principal; 2025-06-01 10:35)
DX: K43.2 Incisional hernia without obstruction or gangrene (principal); R12 Heartburn; Z90.49 Acquired absence of other specified parts of digestive tract; Z87.19 Personal history of other diseases of the digestive system
CPT/HCPCS: 49593; S2900; 00752; 81025; J0666; J2405